=== PATIENT | male | born 1940 | race Caucasian/White ===

== ENCOUNTER 2023-05-15 07:57 | Day surgery (SDC) | payer MEDICARE, OTHER ==
[2023-05-15] MEDS ORDERED: Sodium Chloride 0.9% 10 ML Syringe FLUSH PRN (08:30)
[2023-05-15] MEDS ORDERED: Midazolam 1 MG/ML 2 ML SDV ONE (08:44)
== END 2023-05-15 09:45 | disposition home or self-care (01) ==
LOC: JP.SDS 07:57
PROVIDERS: ATTEND Ophthalmology
DX: H26.9 Unspecified cataract (principal)
CPT/HCPCS: 66984; J2250; J3490; V2632